=== PATIENT | female | born 1940 | race Caucasian/White ===

== ENCOUNTER 2016-05-31 15:00 | Emergency (ER) | payer MEDICARE, BC ==
[2016-05-31 15:15] VITALS: TEMP 98.3
[2016-05-31 16:01] LABS: BASOPHILS % (AUTO) 1 % (0-3); EOSINOPHILS % (AUTO) 1 % (0-9); HEMATOCRIT 38 % (35-47); MEAN CORPUSCULAR HGB CONC 33.5 gm/dl (32.0-36.0); MONOCYTES % (AUTO) 8.9 % (0-12); NEUTROPHILS % (AUTO) 68.3 % (37-80)
[2016-05-31 16:15] LABS: CALCIUM 9.3 mg/dl (8.5-10.1); GLOM FILT RATE 52 mL/min (>60); POTASSIUM 3.3 mMol/L (3.5-5.1); SODIUM 139 mMol/L (136-145)
[2016-05-31 17:46] VITALS: BP 164/88; PULSE 71; RESP 16; O2SAT 91
== END 2016-05-31 17:21 | disposition home or self-care (01) | DRG 641 ==
LOC: ED 15:00
DX: E86.0 Dehydration (principal); I50.30 Unspecified diastolic (congestive) heart failure; Z79.01 Long term (current) use of anticoagulants
CPT/HCPCS: 80048; 83880; 84484; 85025; 85610; 93005; 99283

== ENCOUNTER 2016-11-07 10:42 | Outpatient (CLI) | payer MEDICARE, BC ==
[2016-05-31 17:46] VITALS: O2SAT 91
== END 2016-11-07 10:43 | disposition home or self-care (01) | DRG 552 ==
LOC: CONVCARE 10:42
PROVIDERS: ATTEND Orthopaedic Surgery
DX: M54.5 Low back pain (principal); M47.896 Other spondylosis, lumbar region
CPT/HCPCS: 72131

== ENCOUNTER 2016-11-15 11:59 | Day surgery (SDC) | payer MEDICARE, BC ==
[2016-11-15 12:16] VITALS: RESP 16
[2016-11-15] MEDS ORDERED: TRIAMCINOLONE ACETONIDE 40 MG/ML SUS ONE (13:15)
[2016-11-15 13:45] VITALS: BP 108/78; PULSE 70; TEMP 97.5; O2SAT 90
== END 2016-11-15 14:01 | disposition home or self-care (01) | DRG 552 ==
LOC: SURG 11:59
PROVIDERS: ATTEND Nurse Anesthetist, Certified Registered
DX: M54.5 Low back pain (principal); M48.06 Spinal stenosis, lumbar region
CPT/HCPCS: J3300

== ENCOUNTER 2016-12-29 12:01 | Day surgery (SDC) | payer MEDICARE, BC ==
[2016-12-29] MEDS ORDERED: LIDOCAINE HCL 1% MPF SOL ONE (12:55)
[2016-12-29] MEDS: DEXAMETHASONE SOD PHOS PF 10 MG/ML SOL IJ ONE ×3 (12:56→13:14)
[2016-12-29 13:25] VITALS: BP 144/69; PULSE 72; RESP 18; TEMP 97.4; O2SAT 94
== END 2016-12-29 14:17 | disposition home or self-care (01) | DRG 552 ==
LOC: SURG 12:01
PROVIDERS: ATTEND Nurse Anesthetist, Certified Registered
DX: M54.5 Low back pain (principal); M48.06 Spinal stenosis, lumbar region; M54.16 Radiculopathy, lumbar region
CPT/HCPCS: J1100; J2001

== ENCOUNTER 2017-01-23 14:03 | Emergency (ER) | payer MEDICARE, BC ==
[2017-01-23 14:37] VITALS: TEMP 97.8
[2017-01-23 15:34] VITALS: BP 136/63; PULSE 69; RESP 18; O2SAT 93
== END 2017-01-23 15:15 | disposition home or self-care (01) | DRG 556 ==
LOC: ED 14:03
DX: M79.605 Pain in left leg (principal); I48.2 Chronic atrial fibrillation; M79.604 Pain in right leg; M79.89 Other specified soft tissue disorders; Z79.01 Long term (current) use of anticoagulants
CPT/HCPCS: 99282

== ENCOUNTER 2017-04-28 13:23 | Emergency (ER) | payer MEDICARE, BC ==
[2017-04-28] MEDS ORDERED: FENTANYL 100MCG/2ML SOL IV ONE (13:31)
[2017-04-28] MEDS ORDERED: FENTANYL 100MCG/2ML SOL ONE (13:32)
[2017-04-28 13:41] VITALS: RESP 16; TEMP 97.8
[2017-04-28 15:44] VITALS: BP 146/70; PULSE 71; O2SAT 95
== END 2017-04-28 16:05 | disposition home or self-care (01) | DRG 552 ==
LOC: ED 13:23
DX: M54.89 Other dorsalgia (principal); W18.30XA Fall on same level, unspecified, initial encounter
CPT/HCPCS: 72070; 73010; 99284; J3010

== ENCOUNTER 2017-04-30 16:18 | Emergency (ER) | payer MEDICARE, BC ==
[2017-04-30 16:48] VITALS: TEMP 99
[2017-04-30 16:53] LABS: BASOPHILS % (AUTO) 1 % (0-3); EOSINOPHILS % (AUTO) 0 % (0-9); HEMATOCRIT 40 % (35-47); MEAN CORPUSCULAR HGB CONC 30.4 gm/dl (32.0-36.0); MONOCYTES % (AUTO) 9.1 % (0-12); NEUTROPHILS % (AUTO) 78.8 % (37-80)
[2017-04-30 16:54] LABS: MEAN CORPUSCULAR VOLUME 104 fL (81-99)
[2017-04-30] MEDS ORDERED: APAP/OXYCODONE 325/5 TAB ONE (17:43)
[2017-04-30] MEDS ORDERED: APAP/OXYCODONE 325/5 TAB PO ONE (17:45)
[2017-04-30 18:43] VITALS: BP 137/71; PULSE 69; RESP 17; O2SAT 95
== END 2017-04-30 18:20 | disposition home or self-care (01) | DRG 313 ==
LOC: ED 16:18
DX: R07.89 Other chest pain (principal); R06.02 Shortness of breath
CPT/HCPCS: 36415; 71010; 83880; 84484; 85025; 99283

== ENCOUNTER 2017-05-03 03:54 | Emergency (ER) | payer MEDICARE, BC ==
[2017-05-03 04:26] VITALS: TEMP 97.9
[2017-05-03 04:35] LABS: CALCIUM 9.1 mg/dl (8.5-10.1); POTASSIUM 5.4 mMol/L (3.5-5.1)
[2017-05-03 04:43] LABS: BASOPHILS % (AUTO) 1 % (0-3); EOSINOPHILS % (AUTO) 2 % (0-9); HEMATOCRIT 35 % (35-47); MEAN CORPUSCULAR HGB CONC 32.4 gm/dl (32.0-36.0); NEUTROPHILS % (AUTO) 72.1 % (37-80)
[2017-05-03 04:45] LABS: MEAN CORPUSCULAR VOLUME 105 fL (81-99)
[2017-05-03] MEDS ORDERED: ALBUTEROL NEB SOL 2.5MG/3ML 1 VIAL SOL ONE (04:48)
[2017-05-03] MEDS ORDERED: ALBUTEROL NEB SOL 2.5MG/3ML 1 VIAL SOL NEB ONE (04:51)
[2017-05-03] MEDS ORDERED: SODIUM POLYSTYRENE SULFONATE 15 GM/60 ML SUS ONE (05:28)
[2017-05-03] MEDS ORDERED: SODIUM POLYSTYRENE SULFONATE 15 GM/60 ML SUS PO SCH (05:30)
[2017-05-03 05:57] VITALS: O2SAT 95
[2017-05-03] MEDS ORDERED: PHYTONADIONE 1 MG/0.5 ML SOL IM ONE (05:59)
[2017-05-03] MEDS ORDERED: PHYTONADIONE 10 MG/ML SOL ONE (06:00)
[2017-05-03 06:34] VITALS: BP 130/78; PULSE 70; RESP 24
== END 2017-05-03 07:05 | disposition short-term general hospital (02) | DRG 292 ==
LOC: ED 03:54
DX: I50.9 Heart failure, unspecified (principal); J91.8 Pleural effusion in other conditions classified elsewhere; E87.5 Hyperkalemia; J94.2 Hemothorax; J44.9 Chronic obstructive pulmonary disease, unspecified; S22.41XD Multiple fractures of ribs, right side, subsequent encounter for fracture with routine healing; R79.1 Abnormal coagulation profile
CPT/HCPCS: 36415; 71010; 80048; 83880; 85025; 85378; 85610; 93005; 96372; 99285; 99291; J3430; J7603

== ENCOUNTER 2017-05-08 15:18 | Inpatient (IN) | payer MEDICARE, BC ==
[2017-05-08] MEDS ORDERED: TEMAZEPAM 15MG 15 MG CAP PO PRN ×2 (17:28→18:42)
[2017-05-08] MEDS ORDERED: ALBUTEROL/IPRATROPIUM 1 VIAL SOL NEB PRN (17:28)
[2017-05-08] MEDS ORDERED: WARFARIN SODIUM 5 MG TAB PO ONE (18:00)
[2017-05-08] MEDS ORDERED: METOPROLOL TARTRATE 50 MG TAB PO SCH (21:00)
[2017-05-08] MEDS ORDERED: OMEPRAZOLE 20 MG CAPSULE PO SCH (21:00)
[2017-05-08] MEDS ORDERED: POTASSIUM CHLORIDE 10 MEQ TER PO SCH (21:00)
[2017-05-08] MEDS: ACETAMINOPHEN 325 MG PO SCH (21:36)
[2017-05-08] MEDS: HYDROMORPHONE HYDROCHLORIDE 2 MG TAB PO PRN (21:36)
[2017-05-08] MEDS: ALLOPURINOL 100 MG TAB PO SCH (21:37)
[2017-05-08] MEDS: PRAVASTATIN SODIUM 20 MG TAB PO SCH (21:37)
[2017-05-08] MEDS: TEMAZEPAM 15MG 15 MG CAP PO PRN (21:56)
[2017-05-09] MEDS ORDERED: ALBUTEROL NEB SOL 2.5MG/3ML 1 VIAL SOL NEB PRN (07:40)
[2017-05-09] MEDS ORDERED: MAGNESIUM HYDROXIDE 30 ML SUS PO PRN (08:05)
[2017-05-09] MEDS: ALBUTEROL/IPRATROPIUM 1 VIAL SOL NEB SCH ×4 (08:49→20:54)
[2017-05-09] MEDS: METOPROLOL TARTRATE 25 MG TAB PO SCH ×2 (08:52→21:04)
[2017-05-09] MEDS: MAGNESIUM OXIDE 400 MG TAB PO SCH (08:52)
[2017-05-09] MEDS: FUROSEMIDE 40 MG TAB PO SCH (08:52)
[2017-05-09] MEDS: SENNOSIDES A AND B 8.6 MG TAB PO SCH ×2 (08:53→21:04)
[2017-05-09] MEDS: POTASSIUM CHLORIDE 10 MEQ CAPSULE PO SCH ×2 (08:53→21:03)
[2017-05-09] MEDS: ACETAMINOPHEN 325 MG PO SCH ×4 (08:53→21:04)
[2017-05-09] MEDS: PANTOPRAZOLE SODIUM 40 MG ECT PO SCH (08:53)
[2017-05-09] MEDS: ALLOPURINOL 100 MG TAB PO SCH ×2 (08:54→21:05)
[2017-05-09] MEDS ORDERED: WARFARIN SODIUM 2 MG TAB PO SCH (09:00)
[2017-05-09] MEDS: HYDROMORPHONE HYDROCHLORIDE 2 MG TAB PO PRN ×2 (09:00→23:10)
[2017-05-09] MEDS: CALCITONIN (SALMON) 200 IU/Actuation SPR NAS SCH ×2 (09:18→10:05)
[2017-05-09] MEDS: WARFARIN SODIUM 4 MG TAB PO SCH (18:14)
[2017-05-09] MEDS: WARFARIN SODIUM 2 MG TAB PO SCH (18:19)
[2017-05-09] MEDS: TEMAZEPAM 15MG 15 MG CAP PO PRN (21:03)
[2017-05-09] MEDS: PRAVASTATIN SODIUM 20 MG TAB PO SCH (21:04)
[2017-05-10] MEDS: HYDROMORPHONE HYDROCHLORIDE 2 MG TAB PO PRN ×2 (05:31→09:45)
[2017-05-10 07:26] LABS: CALCIUM 8.7 mg/dl (8.5-10.1); POTASSIUM 3.8 mMol/L (3.5-5.1)
[2017-05-10] MEDS: POTASSIUM CHLORIDE 10 MEQ CAPSULE PO SCH ×2 (09:12→21:00)
[2017-05-10] MEDS: MAGNESIUM OXIDE 400 MG TAB PO SCH (09:13)
[2017-05-10] MEDS: FUROSEMIDE 40 MG TAB PO SCH (09:13)
[2017-05-10] MEDS: SENNOSIDES A AND B 8.6 MG TAB PO SCH ×2 (09:13→21:01)
[2017-05-10] MEDS: ALBUTEROL/IPRATROPIUM 1 VIAL SOL NEB SCH ×4 (09:13→21:07)
[2017-05-10] MEDS: ACETAMINOPHEN 325 MG PO SCH ×4 (09:14→21:00)
[2017-05-10] MEDS: METOPROLOL TARTRATE 25 MG TAB PO SCH ×2 (09:14→21:00)
[2017-05-10] MEDS: CALCITONIN (SALMON) 200 IU/Actuation SPR NAS SCH (09:14)
[2017-05-10] MEDS: ALLOPURINOL 100 MG TAB PO SCH ×2 (09:14→21:01)
[2017-05-10] MEDS: PANTOPRAZOLE SODIUM 40 MG ECT PO SCH (09:14)
[2017-05-10] MEDS: [UNRECOGNIZED DRUG - OTHER] TOP SCH ×5 (12:58→21:01)
[2017-05-10] MEDS: WARFARIN SODIUM 4 MG TAB PO SCH (17:29)
[2017-05-10] MEDS: PRAVASTATIN SODIUM 20 MG TAB PO SCH (21:00)
[2017-05-10] MEDS: TEMAZEPAM 15MG 15 MG CAP PO PRN (21:01)
[2017-05-11] MEDS: ALBUTEROL/IPRATROPIUM 1 VIAL SOL NEB SCH ×4 (08:09→20:07)
[2017-05-11] MEDS: CALCITONIN (SALMON) 200 IU/Actuation SPR NAS SCH (08:28)
[2017-05-11] MEDS: PANTOPRAZOLE SODIUM 40 MG ECT PO SCH (08:29)
[2017-05-11] MEDS: FUROSEMIDE 40 MG TAB PO SCH (08:29)
[2017-05-11] MEDS: MAGNESIUM OXIDE 400 MG TAB PO SCH (08:29)
[2017-05-11] MEDS: POTASSIUM CHLORIDE 10 MEQ CAPSULE PO SCH ×2 (08:29→20:01)
[2017-05-11] MEDS: ALLOPURINOL 100 MG TAB PO SCH ×2 (08:30→20:01)
[2017-05-11] MEDS: METOPROLOL TARTRATE 25 MG TAB PO SCH ×2 (08:30→20:00)
[2017-05-11] MEDS: ACETAMINOPHEN 325 MG PO SCH ×4 (08:30→20:00)
[2017-05-11] MEDS: [UNRECOGNIZED DRUG - OTHER] TOP SCH ×4 (08:31→20:01)
[2017-05-11] MEDS: SENNOSIDES A AND B 8.6 MG TAB PO SCH ×2 (08:36→20:01)
[2017-05-11] MEDS: ONDANSETRON HCL 4 MG TAB PO PRN ×2 (13:45→21:48)
[2017-05-11] MEDS: WARFARIN SODIUM 2 MG TAB PO SCH (17:42)
[2017-05-11] MEDS: PRAVASTATIN SODIUM 20 MG TAB PO SCH (20:00)
[2017-05-11] MEDS: TEMAZEPAM 15MG 15 MG CAP PO PRN (20:05)
[2017-05-12] MEDS: HYDROMORPHONE HYDROCHLORIDE 2 MG TAB PO PRN ×3 (03:18→12:07)
[2017-05-12 07:40] VITALS: BP 157/79; RESP 16; TEMP 98.6
[2017-05-12] MEDS: ALBUTEROL/IPRATROPIUM 1 VIAL SOL NEB SCH ×2 (08:19→12:48)
[2017-05-12] MEDS: POTASSIUM CHLORIDE 10 MEQ CAPSULE PO SCH (08:34)
[2017-05-12] MEDS: MAGNESIUM OXIDE 400 MG TAB PO SCH (08:35)
[2017-05-12] MEDS: FUROSEMIDE 40 MG TAB PO SCH (08:35)
[2017-05-12] MEDS: ALLOPURINOL 100 MG TAB PO SCH (08:36)
[2017-05-12] MEDS: CALCITONIN (SALMON) 200 IU/Actuation SPR NAS SCH (08:36)
[2017-05-12] MEDS: PANTOPRAZOLE SODIUM 40 MG ECT PO SCH (08:36)
[2017-05-12] MEDS: METOPROLOL TARTRATE 25 MG TAB PO SCH (08:36)
[2017-05-12] MEDS: ACETAMINOPHEN 325 MG PO SCH ×2 (08:36→12:48)
[2017-05-12] MEDS: [UNRECOGNIZED DRUG - OTHER] TOP SCH ×2 (08:37→12:48)
[2017-05-12] MEDS: SENNOSIDES A AND B 8.6 MG TAB PO SCH (08:39)
[2017-05-12 13:00] VITALS: PULSE 77; O2SAT 99
== END 2017-05-12 13:55 | disposition home health service (06) | DRG 561 ==
LOC: ACUTE CARE 16:13
PROVIDERS: ADMIT Family Medicine; ATTEND Family Medicine
DX: S22.41XD Multiple fractures of ribs, right side, subsequent encounter for fracture with routine healing (principal); E87.5 Hyperkalemia; I50.9 Heart failure, unspecified; N18.3 Chronic kidney disease, stage 3 (moderate); Z79.01 Long term (current) use of anticoagulants; R53.1 Weakness; K59.03 Drug induced constipation; J44.9 Chronic obstructive pulmonary disease, unspecified; Z99.81 Dependence on supplemental oxygen
CPT/HCPCS: 36415; 80048; 85610; 94150; 94640; J7603; J7620

== ENCOUNTER 2017-05-30 12:14 | Emergency (ER) | payer MEDICARE, BC ==
[2017-05-30 12:27] VITALS: TEMP 97.8
[2017-05-30 13:38] VITALS: O2SAT 93
[2017-05-30] MEDS ORDERED: PHYTONADIONE PO SCH (14:15)
[2017-05-30 14:42] VITALS: BP 152/72; PULSE 80; RESP 20
== END 2017-05-30 14:27 | disposition short-term general hospital (02) | DRG 292 ==
LOC: ED 12:14
DX: I50.9 Heart failure, unspecified (principal); J90 Pleural effusion, not elsewhere classified; Z79.01 Long term (current) use of anticoagulants; J98.11 Atelectasis; Z95.0 Presence of cardiac pacemaker; R09.02 Hypoxemia
CPT/HCPCS: 36415; 83880; 85610; 85730; 99284

== ENCOUNTER 2017-06-09 01:53 | Inpatient (IN) | payer MEDICARE, BC ==
[2017-06-09 02:25] LABS: BASOPHILS % (AUTO) 1 % (0-3); EOSINOPHILS % (AUTO) 2 % (0-9); HEMATOCRIT 38 % (35-47); MONOCYTES % (AUTO) 8.9 % (0-12); NEUTROPHILS % (AUTO) 60.5 % (37-80)
[2017-06-09 02:39] LABS: MEAN CORPUSCULAR VOLUME 100 fL (81-99)
[2017-06-09 02:48] LABS: ALBUMIN 2.3 gm/dl (3.4-5.0); CALCIUM 8.8 mg/dl (8.5-10.1); POTASSIUM 5.2 mMol/L (3.5-5.1)
[2017-06-09] MEDS ORDERED: FUROSEMIDE 20mg SOL IV ONE (03:01)
[2017-06-09] MEDS ORDERED: SODIUM POLYSTYRENE SULFONATE 15 GM/60 ML SUS PO ONE (03:03)
[2017-06-09] MEDS ORDERED: FUROSEMIDE 20mg SOL ONE (03:06)
[2017-06-09] MEDS: SODIUM CHLORIDE 0.9% FLUSH 10 ML SOL IV PRN (03:09)
[2017-06-09] MEDS ORDERED: ALBUTEROL/IPRATROPIUM 1 VIAL SOL NEB PRN (03:15)
[2017-06-09] MEDS ORDERED: HYDROMORPHONE HCL 2 MG TAB PO PRN (03:15)
[2017-06-09] MEDS ORDERED: ALBUTEROL NEB SOL 2.5MG/3ML 1 VIAL SOL NEB PRN (03:15)
[2017-06-09] MEDS ORDERED: SENNOSIDES A AND B 8.6 MG TAB PO PRN (03:15)
[2017-06-09] MEDS ORDERED: LIDOCAINE 5% PATCH 1 PATCH TDM TOP PRN (03:15)
[2017-06-09] MEDS ORDERED: WARFARIN SODIUM 2 MG TAB PO SCH ×2 (03:15→18:45)
[2017-06-09] MEDS ORDERED: ALBUTEROL HFA 60 PUFF/INHALER INH PRN (03:15)
[2017-06-09] MEDS ORDERED: MAGNESIUM HYDROXIDE 30 ML SUS PO PRN (03:15)
[2017-06-09 08:28] LABS: ABG PH 7.39 (7.35-7.45)
[2017-06-09 08:44] LABS: CALCIUM 9.1 mg/dl (8.5-10.1); POTASSIUM 4.1 mMol/L (3.5-5.1)
[2017-06-09] MEDS ORDERED: OMEPRAZOLE 20 MG CAPSULE PO SCH (09:00)
[2017-06-09] MEDS ORDERED: FUROSEMIDE 40 MG TAB PO SCH (09:00)
[2017-06-09] MEDS: ASCORBIC ACID/COPPER/VITAMIN SGL PO SCH (09:00)
[2017-06-09] MEDS ORDERED: BUDESONIDE 0.25 MG/2 ML SUS INH SCH (09:00)
[2017-06-09] MEDS: DILTIAZEM ER 120 MG C24 PO SCH (09:52)
[2017-06-09] MEDS: GABAPENTIN 100 MG CAP PO SCH ×4 (09:53→20:23)
[2017-06-09] MEDS: GABAPENTIN 300 MG CAP PO SCH ×4 (09:53→20:24)
[2017-06-09] MEDS: PANTOPRAZOLE SODIUM 40 MG ECT PO SCH (09:54)
[2017-06-09] MEDS: ALLOPURINOL 100 MG TAB PO SCH ×2 (09:55→20:24)
[2017-06-09] MEDS: FUROSEMIDE 40 MG SOL IV SCH (10:08)
[2017-06-09] MEDS: METOPROLOL TARTRATE 25 MG TAB PO SCH ×2 (10:42→20:23)
[2017-06-09] MEDS: BUDESONIDE 0.5 MG/2 ML AMPUL.NEB INH SCH ×2 (10:42→20:26)
[2017-06-09] MEDS: OMEGA PO SCH (10:43)
[2017-06-09] MEDS: FATTY ACIDS PO SCH (10:43)
[2017-06-09] MEDS: LEVOTHYROXINE SODIUM 88 MCG TAB PO SCH (10:43)
[2017-06-09] MEDS: ALBUTEROL/IPRATROPIUM 1 VIAL SOL INH SCH ×3 (10:46→20:26)
[2017-06-09] MEDS: MAGNESIUM OXIDE 400 MG TAB PO SCH (12:38)
[2017-06-09] MEDS: PRAVASTATIN SODIUM 20 MG TAB PO SCH (20:25)
[2017-06-10] MEDS: ALBUTEROL/IPRATROPIUM 1 VIAL SOL INH SCH ×4 (02:00→20:13)
[2017-06-10] MEDS: LEVOTHYROXINE SODIUM 88 MCG TAB PO SCH (06:10)
[2017-06-10] MEDS: FUROSEMIDE 40 MG SOL IV SCH (06:11)
[2017-06-10 07:17] LABS: BASOPHILS % (AUTO) 2 % (0-3); EOSINOPHILS % (AUTO) 3 % (0-9); HEMATOCRIT 34 % (35-47); MEAN CORPUSCULAR HGB CONC 31.2 gm/dl (32.0-36.0); MONOCYTES % (AUTO) 13.8 % (0-12); NEUTROPHILS % (AUTO) 55.8 % (37-80)
[2017-06-10 07:19] LABS: MEAN CORPUSCULAR VOLUME 100 fL (81-99)
[2017-06-10 07:25] LABS: CALCIUM 7.8 mg/dl (8.5-10.1); POTASSIUM 3.2 mMol/L (3.5-5.1)
[2017-06-10] MEDS: DILTIAZEM ER 120 MG C24 PO SCH (08:58)
[2017-06-10] MEDS: MAGNESIUM OXIDE 400 MG TAB PO SCH (09:00)
[2017-06-10] MEDS: GABAPENTIN 300 MG CAP PO SCH ×4 (09:00→20:07)
[2017-06-10] MEDS: GABAPENTIN 100 MG CAP PO SCH ×4 (09:00→20:06)
[2017-06-10] MEDS: OMEGA PO SCH (09:01)
[2017-06-10] MEDS: FATTY ACIDS PO SCH (09:01)
[2017-06-10] MEDS: ALLOPURINOL 100 MG TAB PO SCH ×2 (09:02→20:08)
[2017-06-10] MEDS: ASCORBIC ACID/COPPER/VITAMIN SGL PO SCH (09:02)
[2017-06-10] MEDS: PANTOPRAZOLE SODIUM 40 MG ECT PO SCH (09:02)
[2017-06-10] MEDS: METOPROLOL TARTRATE 25 MG TAB PO SCH ×2 (09:06→20:05)
[2017-06-10] MEDS: BUDESONIDE 0.5 MG/2 ML AMPUL.NEB INH SCH ×2 (09:09→20:13)
[2017-06-10] MEDS ORDERED: POTASSIUM CHLORIDE 10 MEQ TER ONE ×3 (11:07→17:33)
[2017-06-10] MEDS: POTASSIUM CHLORIDE 10 MEQ CAPSULE PO SCH ×3 (11:09→17:42)
[2017-06-10] MEDS: SODIUM CHLORIDE 0.9% FLUSH 10 ML SOL IV PRN ×2 (11:13→18:20)
[2017-06-10] MEDS: ACETAMINOPHEN 325 MG PO PRN (15:38)
[2017-06-10] MEDS: WARFARIN SODIUM 2 MG TAB PO SCH (17:41)
[2017-06-10] MEDS ORDERED: WARFARIN SODIUM 2 MG TAB PO SCH (18:00)
[2017-06-10] MEDS: TEMAZEPAM 15MG 15 MG CAP PO PRN (20:07)
[2017-06-10] MEDS: PRAVASTATIN SODIUM 20 MG TAB PO SCH (20:08)
[2017-06-11] MEDS: ALBUTEROL/IPRATROPIUM 1 VIAL SOL INH SCH ×4 (02:33→20:37)
[2017-06-11] MEDS: SODIUM CHLORIDE 0.9% FLUSH 10 ML SOL IV SCH ×3 (02:37→17:48)
[2017-06-11] MEDS: LEVOTHYROXINE SODIUM 88 MCG TAB PO SCH (06:12)
[2017-06-11] MEDS: FUROSEMIDE 40 MG SOL IV SCH (06:12)
[2017-06-11 07:38] LABS: BASOPHILS % (AUTO) 1 % (0-3); EOSINOPHILS % (AUTO) 2 % (0-9); HEMATOCRIT 37 % (35-47); MEAN CORPUSCULAR HGB CONC 31.3 gm/dl (32.0-36.0); MONOCYTES % (AUTO) 14.2 % (0-12); NEUTROPHILS % (AUTO) 48.2 % (37-80)
[2017-06-11 07:50] LABS: CALCIUM 8.4 mg/dl (8.5-10.1); MEAN CORPUSCULAR VOLUME 100 fL (81-99)
[2017-06-11] MEDS: DILTIAZEM ER 120 MG C24 PO SCH (09:29)
[2017-06-11] MEDS: GABAPENTIN 100 MG CAP PO SCH ×4 (09:29→20:40)
[2017-06-11] MEDS: MAGNESIUM OXIDE 400 MG TAB PO SCH (09:29)
[2017-06-11] MEDS: PANTOPRAZOLE SODIUM 40 MG ECT PO SCH (09:29)
[2017-06-11] MEDS: GABAPENTIN 300 MG CAP PO SCH ×4 (09:29→20:40)
[2017-06-11] MEDS: METOPROLOL TARTRATE 25 MG TAB PO SCH ×2 (09:29→20:40)
[2017-06-11] MEDS: ALLOPURINOL 100 MG TAB PO SCH ×2 (09:29→20:40)
[2017-06-11] MEDS: OMEGA PO SCH (09:31)
[2017-06-11] MEDS: FATTY ACIDS PO SCH (09:31)
[2017-06-11] MEDS: ASCORBIC ACID/COPPER/VITAMIN SGL PO SCH (09:36)
[2017-06-11] MEDS: BUDESONIDE 0.5 MG/2 ML AMPUL.NEB INH SCH ×2 (09:39→20:37)
[2017-06-11] MEDS: FUROSEMIDE 40 MG TAB PO SCH ×2 (11:49→12:32)
[2017-06-11] MEDS: POTASSIUM CHLORIDE 10 MEQ TER PO SCH ×2 (12:32→20:39)
[2017-06-11] MEDS: WARFARIN SODIUM 2 MG TAB PO SCH (17:48)
[2017-06-11] MEDS: PRAVASTATIN SODIUM 20 MG TAB PO SCH (20:39)
[2017-06-11] MEDS: TEMAZEPAM 15MG 15 MG CAP PO PRN (20:45)
[2017-06-12] MEDS: ALBUTEROL/IPRATROPIUM 1 VIAL SOL INH SCH ×2 (02:41→09:30)
[2017-06-12] MEDS: SODIUM CHLORIDE 0.9% FLUSH 10 ML SOL IV SCH ×2 (02:41→10:01)
[2017-06-12] MEDS: LEVOTHYROXINE SODIUM 88 MCG TAB PO SCH (06:29)
[2017-06-12 07:28] LABS: BASOPHILS % (AUTO) 1 % (0-3); EOSINOPHILS % (AUTO) 2 % (0-9); HEMATOCRIT 34 % (35-47); MEAN CORPUSCULAR HGB CONC 32.2 gm/dl (32.0-36.0); MONOCYTES % (AUTO) 15.8 % (0-12); NEUTROPHILS % (AUTO) 43.5 % (37-80)
[2017-06-12 07:29] LABS: CALCIUM 8.3 mg/dl (8.5-10.1); POTASSIUM 4.2 mMol/L (3.5-5.1)
[2017-06-12 07:34] LABS: MEAN CORPUSCULAR VOLUME 100 fL (81-99)
[2017-06-12] MEDS: MAGNESIUM OXIDE 400 MG TAB PO SCH (08:50)
[2017-06-12] MEDS: GABAPENTIN 300 MG CAP PO SCH (08:50)
[2017-06-12 08:51] VITALS: BP 121/77; RESP 20; TEMP 95.9
[2017-06-12] MEDS: DILTIAZEM ER 120 MG C24 PO SCH (08:51)
[2017-06-12] MEDS: PANTOPRAZOLE SODIUM 40 MG ECT PO SCH (08:52)
[2017-06-12] MEDS: OMEGA PO SCH (08:52)
[2017-06-12] MEDS: ASCORBIC ACID/COPPER/VITAMIN SGL PO SCH (08:52)
[2017-06-12] MEDS: FATTY ACIDS PO SCH (08:52)
[2017-06-12] MEDS: ALLOPURINOL 100 MG TAB PO SCH (08:53)
[2017-06-12] MEDS: FUROSEMIDE 40 MG TAB PO SCH (08:55)
[2017-06-12] MEDS: GABAPENTIN 100 MG CAP PO SCH (08:55)
[2017-06-12] MEDS: METOPROLOL TARTRATE 25 MG TAB PO SCH (08:55)
[2017-06-12] MEDS: POTASSIUM CHLORIDE 10 MEQ TER PO SCH (09:22)
[2017-06-12] MEDS: BUDESONIDE 0.5 MG/2 ML AMPUL.NEB INH SCH (09:41)
[2017-06-12 09:43] VITALS: PULSE 71; O2SAT 100
[2017-06-12] MEDS ORDERED: PNEUMOC 13-VAL CONJ-DIP CRM/PF 0.5 ML SYRINGE IM ONE (10:00)
[2017-06-12] MEDS: ACETAMINOPHEN 325 MG PO PRN (10:11)
== END 2017-06-12 10:40 | DRG 293 ==
LOC: ED 01:53 → ACUTE CARE 03:12
PROVIDERS: ADMIT Family Medicine; ATTEND Family Medicine
DX: I50.9 Heart failure, unspecified (principal); I50.33 Acute on chronic diastolic (congestive) heart failure; E87.5 Hyperkalemia; I48.2 Chronic atrial fibrillation; J44.9 Chronic obstructive pulmonary disease, unspecified; Z79.01 Long term (current) use of anticoagulants; S22.41XD Multiple fractures of ribs, right side, subsequent encounter for fracture with routine healing
CPT/HCPCS: 36415; 36600; 71045; 71046; 80048; 80053; 82803; 83880; 85025; 85610; 94640; 94660; 94762; 96374; 99284; 99285; 99291; J1940; J7603; J7620; A9270; A9270-GY

== ENCOUNTER 2017-07-02 09:26 | Emergency (ER) | payer MEDICARE, BC ==
[2017-07-02 10:19] VITALS: TEMP 97.4
[2017-07-02 10:36] LABS: POTASSIUM 4.3 mMol/L (3.5-5.1)
[2017-07-02] MEDS ORDERED: FUROSEMIDE 40 MG SOL IV ONE (11:34)
[2017-07-02] MEDS ORDERED: FUROSEMIDE 40 MG SOL ONE (11:44)
[2017-07-02 11:46] LABS: HEMATOCRIT 37 % (35-47)
[2017-07-02] MEDS: SODIUM CHLORIDE 0.9% FLUSH 10 ML SOL IV PRN ×2 (12:05→12:07)
[2017-07-02 12:20] VITALS: BP 128/88; PULSE 86; RESP 20; O2SAT 95
[2017-07-06 05:35] LABS: BASOPHILS % (AUTO) 2 % (0-3); EOSINOPHILS % (AUTO) 2 % (0-9); MEAN CORPUSCULAR VOLUME 97 fL (81-99); MONOCYTES % (AUTO) 9.3 % (0-12); NEUTROPHILS % (AUTO) 62.7 % (37-80)
== END 2017-07-02 12:38 | disposition short-term general hospital (02) | DRG 293 ==
LOC: ED 09:26
DX: I50.33 Acute on chronic diastolic (congestive) heart failure (principal)
CPT/HCPCS: 71045; 80048; 83880; 85025; 93005; 96374; 99284; 99285; J1940

== ENCOUNTER 2017-07-31 17:59 | Emergency (ER) | payer MEDICARE, BC ==
[2017-07-31] MEDS ORDERED: ALBUTEROL/IPRATROPIUM 1 VIAL SOL INH ONE (18:29)
[2017-07-31] MEDS ORDERED: ALBUTEROL/IPRATROPIUM 1 VIAL SOL ONE (18:30)
[2017-07-31 18:57] LABS: ALBUMIN 2.8 gm/dl (3.4-5.0); POTASSIUM 4.5 mMol/L (3.5-5.1)
[2017-07-31 19:00] VITALS: TEMP 98.4
[2017-07-31 19:11] LABS: BASOPHILS % (AUTO) 1 % (0-3); EOSINOPHILS % (AUTO) 2 % (0-9); HEMATOCRIT 36 % (35-47); MEAN CORPUSCULAR HGB CONC 30.5 gm/dl (32.0-36.0); MEAN CORPUSCULAR VOLUME 97 fL (81-99); MONOCYTES % (AUTO) 10.4 % (0-12); NEUTROPHILS % (AUTO) 66.3 % (37-80)
[2017-07-31 19:14] LABS: ABG PH 7.44 (7.35-7.45)
[2017-07-31 20:11] VITALS: RESP 16
[2017-07-31 20:12] VITALS: BP 120/58; PULSE 73; O2SAT 95
== END 2017-07-31 20:00 | disposition home or self-care (01) | DRG 293 ==
LOC: ED 17:59
DX: I50.33 Acute on chronic diastolic (congestive) heart failure (principal)
CPT/HCPCS: 71045; 80053; 82803; 83880; 84484; 85025; 93005; 99284; 99285

== ENCOUNTER 2017-10-02 16:29 | Inpatient (IN) | payer MEDICARE, BC ==
[2017-10-02 17:07] LABS: BASOPHILS % (AUTO) 1 % (0-3); EOSINOPHILS % (AUTO) 0 % (0-9); HEMATOCRIT 43 % (35-47); HEMOGLOBIN 12.8 gm/dl (12.0-15.5); LYMPHOCYTES % (AUTO) 15.4 % (10-50); MEAN CORPUSCULAR HEMOGLOBIN 28.6 pg (27.0-32.0); MEAN CORPUSCULAR HGB CONC 29.9 gm/dl (32.0-36.0); MEAN CORPUSCULAR VOLUME 96 fL (81-99); MONOCYTES % (AUTO) 5.2 % (0-12); NEUTROPHILS % (AUTO) 78.7 % (37-80)
[2017-10-02 17:23] LABS: ALBUMIN 3.6 gm/dl (3.4-5.0); BILIRUBIN,TOTAL 0.8 mg/dl (0.2-1.0); CALCIUM 9.1 mg/dl (8.5-10.1); CREATININE 1.07 mg/dl (0.60-1.00); POTASSIUM 4.5 mMol/L (3.5-5.1); TOTAL PROTEIN 8.1 gm/dl (6.4-8.2)
[2017-10-02 17:57] LABS: CARBON DIOXIDE 40.1 mEq/L (21-32)
[2017-10-02 18:03] LABS: NORMAL RBCS PRESENT
[2017-10-02] MEDS ORDERED: ACETAMINOPHEN 325 MG PO PRN (18:25)
[2017-10-02] MEDS ORDERED: GUAIFENESIN 200 MG/10 ML SOL PO PRN (18:25)
[2017-10-02] MEDS ORDERED: FUROSEMIDE 20mg SOL IV ONE (18:25)
[2017-10-02] MEDS ORDERED: ONDANSETRON 4 MG ODT PO PRN (18:25)
[2017-10-02] MEDS: ALBUTEROL/IPRATROPIUM 1 VIAL SOL INH SCH ×2 (18:31→23:03)
[2017-10-02] MEDS ORDERED: TEMAZEPAM 7.5 MG CAP PO PRN (18:32)
[2017-10-02] MEDS: SOLUMEDROL 125 MG/2 ML 125 MG/2 ML PDS IV SCH (18:32)
[2017-10-02] MEDS ORDERED: CEFTRIAXONE 1 GM PDS 1 GM in SODIUM CHLORIDE 0.9% 50 ML 50 ML IV ONE (18:36)
[2017-10-02] MEDS ORDERED: SODIUM CHLORIDE 0.9% 50 ML 50 ML IV ONE (18:42)
[2017-10-02] MEDS ORDERED: CEFTRIAXONE 1 GM PDS ONE (18:42)
[2017-10-02] MEDS: ALBUTEROL NEB SOL 2.5MG/3ML 1 VIAL SOL NEB PRN (20:03)
[2017-10-02] MEDS: DOXYCYCLINE 100 MG TAB PO SCH (20:57)
[2017-10-02] MEDS: METOPROLOL TARTRATE 50 MG TAB PO SCH (20:57)
[2017-10-02] MEDS: GABAPENTIN 100 MG CAP PO SCH (20:57)
[2017-10-02] MEDS: SENNOSIDES A AND B 8.6 MG TAB PO SCH (20:58)
[2017-10-02] MEDS: PRAVASTATIN SODIUM 20 MG TAB PO SCH (20:58)
[2017-10-02] MEDS: TORSEMIDE 20 MG TAB PO SCH (21:00)
[2017-10-02] MEDS ORDERED: GABAPENTIN PO SCH (21:00)
[2017-10-02] MEDS: GABAPENTIN 300 MG CAP PO SCH (21:00)
[2017-10-03] MEDS: SOLUMEDROL 125 MG/2 ML 125 MG/2 ML PDS IV SCH ×3 (01:32→17:07)
[2017-10-03] MEDS: SODIUM CHLORIDE 0.9% FLUSH 10 ML SOL IV SCH ×3 (01:32→17:07)
[2017-10-03] MEDS: ALBUTEROL/IPRATROPIUM 1 VIAL SOL INH SCH ×4 (04:30→21:45)
[2017-10-03] MEDS ORDERED: Non-Formulary Medication MISC (Levothyroxine Sodium 88 Mcg 88 MCG) PO SCH (07:00)
[2017-10-03 07:15] LABS: BASOPHILS % (AUTO) 0 % (0-3); EOSINOPHILS % (AUTO) 0 % (0-9); HEMATOCRIT 38 % (35-47); HEMOGLOBIN 12.1 gm/dl (12.0-15.5); MEAN CORPUSCULAR HEMOGLOBIN 30.4 pg (27.0-32.0); MEAN CORPUSCULAR HGB CONC 31.8 gm/dl (32.0-36.0); MEAN CORPUSCULAR VOLUME 96 fL (81-99); MONOCYTES % (AUTO) 2.2 % (0-12); NEUTROPHILS % (AUTO) 85.4 % (37-80)
[2017-10-03 07:31] LABS: ALBUMIN 2.9 gm/dl (3.4-5.0); BILIRUBIN,TOTAL 0.6 mg/dl (0.2-1.0); CALCIUM 8.4 mg/dl (8.5-10.1); CREATININE 1.13 mg/dl (0.60-1.00); POTASSIUM 4.2 mMol/L (3.5-5.1); TOTAL PROTEIN 6.8 gm/dl (6.4-8.2)
[2017-10-03 07:36] LABS: CARBON DIOXIDE 41.7 mEq/L (21-32)
[2017-10-03 07:59] LABS: ANISOCYTOSIS SLIGHT AMT; OVALOCYTES PRESENT; POIKILOCYTOSIS MOD AMT; TARGET CELLS PRESENT; TEAR DROP CELLS PRESENT
[2017-10-03 08:59] LABS: INR 1.48 (0.86-1.12)
[2017-10-03] MEDS ORDERED: ASCORBIC ACID 100 MG PO SCH (09:00)
[2017-10-03] MEDS: MAGNESIUM OXIDE 400 MG TAB PO SCH (09:09)
[2017-10-03] MEDS: SPIRONOLACTONE 25 MG TAB PO SCH (09:09)
[2017-10-03] MEDS: METOPROLOL TARTRATE 50 MG TAB PO SCH (09:10)
[2017-10-03] MEDS: FUROSEMIDE 40 MG TAB PO SCH (09:10)
[2017-10-03] MEDS: DOXYCYCLINE 100 MG TAB PO SCH ×2 (09:10→21:31)
[2017-10-03] MEDS: SENNOSIDES A AND B 8.6 MG TAB PO SCH ×2 (09:10→21:32)
[2017-10-03] MEDS: POTASSIUM CHLORIDE 10 MEQ TER PO SCH (09:10)
[2017-10-03] MEDS: TORSEMIDE 20 MG TAB PO SCH (09:11)
[2017-10-03] MEDS: DAPSONE 100 MG PO SCH (09:11)
[2017-10-03] MEDS: FATTY ACIDS PO SCH (09:28)
[2017-10-03] MEDS: OMEGA PO SCH (09:28)
[2017-10-03] MEDS: GUAIFENESIN 200 MG/10 ML SOL PO SCH ×4 (09:30→21:30)
[2017-10-03] MEDS ORDERED: TEMAZEPAM 15MG 15 MG CAP PO PRN (10:47)
[2017-10-03] MEDS: TORSEMIDE 10 MG TABLET PO SCH (14:30)
[2017-10-03] MEDS ORDERED: WARFARIN SODIUM 2 MG TAB PO SCH (18:00)
[2017-10-03] MEDS: METOPROLOL TARTRATE 25 MG TAB PO SCH (21:31)
[2017-10-03] MEDS: GABAPENTIN 100 MG CAP PO SCH (21:32)
[2017-10-03] MEDS: GABAPENTIN 300 MG CAP PO SCH (21:32)
[2017-10-03] MEDS: PRAVASTATIN SODIUM 20 MG TAB PO SCH (21:33)
[2017-10-04] MEDS: SOLUMEDROL 125 MG/2 ML 125 MG/2 ML PDS IV SCH ×2 (01:18→09:12)
[2017-10-04] MEDS: GUAIFENESIN 200 MG/10 ML SOL PO SCH ×4 (01:18→13:16)
[2017-10-04] MEDS: SODIUM CHLORIDE 0.9% FLUSH 10 ML SOL IV SCH ×2 (01:19→09:07)
[2017-10-04] MEDS: ALBUTEROL/IPRATROPIUM 1 VIAL SOL INH SCH ×2 (04:25→10:33)
[2017-10-04] MEDS ORDERED: LEVOTHYROXINE SODIUM 88 MCG TAB PO SCH (07:00)
[2017-10-04 07:27] LABS: HEMATOCRIT 37 % (35-47); HEMOGLOBIN 11.4 gm/dl (12.0-15.5); MEAN CORPUSCULAR HEMOGLOBIN 29.7 pg (27.0-32.0); MEAN CORPUSCULAR VOLUME 96 fL (81-99)
[2017-10-04 07:33] LABS: ALBUMIN 2.9 gm/dl (3.4-5.0); BILIRUBIN,TOTAL 0.6 mg/dl (0.2-1.0); CALCIUM 7.9 mg/dl (8.5-10.1); CREATININE 1.39 mg/dl (0.60-1.00); POTASSIUM 4.3 mMol/L (3.5-5.1); TOTAL PROTEIN 6.6 gm/dl (6.4-8.2)
[2017-10-04 07:45] LABS: INR 1.5 (0.86-1.12)
[2017-10-04 08:00] LABS: NEUTROPHILS % (MANUAL) 73 % (37-80)
[2017-10-04 08:01] LABS: BAND NEUTROPHILS % (MANUAL) 21 %; BASOPHILS % (MANUAL) 0 % (0-3); EOSINOPHILS % (MANUAL) 0 % (0-9); LYMPHOCYTES % (MANUAL) 5 % (10-50); MONOCYTES % (MANUAL) 1 % (0-12); NUCLEATED RED BLOOD CELLS 3 /100WBCS; POIKILOCYTOSIS MOD AMT; SPHEROCYTES PRESENT; TARGET CELLS PRESENT
[2017-10-04 08:02] LABS: TEAR DROP CELLS PRESENT
[2017-10-04] MEDS: ALBUTEROL NEB SOL 2.5MG/3ML 1 VIAL SOL NEB PRN ×2 (08:05→13:23)
[2017-10-04] MEDS: DOXYCYCLINE 100 MG TAB PO SCH (09:06)
[2017-10-04] MEDS: SENNOSIDES A AND B 8.6 MG TAB PO SCH (09:07)
[2017-10-04] MEDS: SPIRONOLACTONE 25 MG TAB PO SCH (09:07)
[2017-10-04] MEDS: MAGNESIUM OXIDE 400 MG TAB PO SCH (09:08)
[2017-10-04] MEDS: FUROSEMIDE 40 MG TAB PO SCH (09:08)
[2017-10-04] MEDS: DAPSONE 100 MG PO SCH (09:08)
[2017-10-04] MEDS: POTASSIUM CHLORIDE 10 MEQ TER PO SCH (09:08)
[2017-10-04] MEDS: FATTY ACIDS PO SCH (09:09)
[2017-10-04] MEDS: OMEGA PO SCH (09:09)
[2017-10-04] MEDS: TORSEMIDE 10 MG TABLET PO SCH ×2 (09:09→14:06)
[2017-10-04] MEDS: METOPROLOL TARTRATE 25 MG TAB PO SCH (09:10)
[2017-10-04 15:53] VITALS: O2SAT 88
[2017-10-04 16:19] VITALS: BP 108/66; PULSE 99; RESP 22; TEMP 98.1
== END 2017-10-04 17:15 | disposition short-term general hospital (02) | DRG 191 ==
LOC: ACUTE CARE 16:37 → UNDODISIN 16:45
PROVIDERS: ADMIT Family Medicine; ATTEND Family Medicine
DX: J44.1 Chronic obstructive pulmonary disease with (acute) exacerbation (principal); J90 Pleural effusion, not elsewhere classified; I48.91 Unspecified atrial fibrillation; I50.9 Heart failure, unspecified
CPT/HCPCS: 36415; 71046; 71275; 80053; 82962; 85007; 85025; 85027; 85610; 94150; 94640; 94664; 94669; 94762; J0696; J1940; J2930; J7613; Q9967; A9270; A9270-GY